=== PATIENT | female | born 1975 | race Caucasian/White ===

== ENCOUNTER 2017-04-28 06:14 | Emergency (ER) | payer SELFPAY ==
[~2017-04-28] VITALS: Ht 157.5 cm; Wt 77.3 kg
[2017-04-28] MEDS ORDERED: OMEG-12 PO (06:22)
[2017-04-28 06:45] VITALS: BP 132/51
[2017-04-28 07:25] LABS: BASOPHILS % (AUTO) 0.4 % (0.0-2.0); EOSINOPHILS % (AUTO) 1.7 % (1.0-6.0); HEMATOCRIT 39.8 % (36-46); HEMOGLOBIN 13.6 g/dL (12.0-16.0); LYMPHOCYTES # (AUTO) 1.5 K/uL (1.0-4.8); LYMPHOCYTES % (AUTO) 23.4 % (22.0-44.0); MEAN CORPUSCULAR HEMOGLOBIN 31.5 pg (26.0-34.0); MEAN CORPUSCULAR HGB CONC 34.2 G/dL (31.0-37.0); MEAN CORPUSCULAR VOLUME 92 fL (80-100); MONOCYTES # (AUTO) 0.4 K/uL (0.1-1.0); MONOCYTES % (AUTO) 5.6 % (2.0-9.0); NEUTROPHILS # (AUTO) 4.4 K/uL (1.8-7.7); NEUTROPHILS % (AUTO) 68.9 % (40.0-70.0); PLATELET COUNT (AUTO) 240 K/uL (150-450); RED BLOOD CELL COUNT(AUTO) 4.32 MIL/uL (4.00-5.20); RED CELL DISTRIBUTION WIDTH 12.5 % (11.5-14.5); WHITE BLOOD COUNT (AUTO) 6.5 K/uL (4.5-11.0)
[2017-04-28 07:38] LABS: ANION GAP 9 mmol/L (8-16); CALCIUM, TOTAL 8.6 mg/dL (8.8-10.5); CARBON DIOXIDE 26 mmol/L (22-29); CHLORIDE 106 mmol/L (98-107); CREATININE 0.71 mg/dL (0.60-1.30); GLOMERULAR FILTR. RATE CALC > 60 mL/min (>60); POTASSIUM 3.7 mmol/L (3.5-5.1); SODIUM SERUM 141 mmol/L (136-145); UREA NITROGEN, BLOOD 15 mg/dL (7-18)
[2017-04-28 07:43] LABS: ALANINE AMINOTRANSFERASE 34 U/L (12-78); ALBUMIN 3.5 g/dL (3.4-5.0); ASPARTATE AMINOTRANSFERASE 16 U/L (15-37); BILIRUBIN,TOTAL 0.6 mg/dL (0.1-1.0); CREATINE KINASE, TOTAL 46 U/L (26-192); TOTAL PROTEIN, SERUM 7.2 g/dL (6.4-8.2)
[2017-04-28 07:52] LABS: B-TYPE NATRIURETIC PEPTIDE 27 pg/mL (0-100)
== END 2017-04-28 08:07 | disposition home or self-care (01) ==
LOC: EMS 06:19
DX: R20.0 Anesthesia of skin (principal); R07.89 Other chest pain; R06.02 Shortness of breath; Z90.49 Acquired absence of other specified parts of digestive tract
CPT/HCPCS: 93005; 99285

== ENCOUNTER 2017-04-30 19:19 | Emergency (ER) | payer SELFPAY ==
[~2017-04-30] VITALS: Ht 157.5 cm; Wt 77.3 kg
[~2017-04-30 19:19] MED LIST: OMEG-12 PO
[2017-04-30 19:47] LABS: GLUCOSE,POINT OF CARE 110 MG/DL (70-110)
[2017-04-30 21:20] VITALS: BP 138/83
== END 2017-04-30 21:45 | disposition home or self-care (01) ==
LOC: EMS 19:21
DX: R68.2 Dry mouth, unspecified (principal); R53.83 Other fatigue; Z71.1 Person with feared health complaint in whom no diagnosis is made
CPT/HCPCS: 81025; 82962; 99282

== ENCOUNTER 2018-11-20 23:26 | Emergency (ER) | payer OTHER, SELFPAY ==
[~2018-11-20] VITALS: Ht 157.5 cm; Wt 69.0 kg
[2018-11-20] MEDS ORDERED: FERR-89 PO (23:32)
[2018-11-21] MEDS ORDERED: DiphenhydrAMINE HCL 50 MG CAPSULE PO ONE (01:00)
[2018-11-21 01:10] VITALS: BP 113/74
== END 2018-11-21 01:26 | disposition home or self-care (01) ==
LOC: EMS 23:31
DX: T78.1XXA Other adverse food reactions, not elsewhere classified, initial encounter (principal); X58.XXXA Exposure to other specified factors, initial encounter